=== PATIENT | male | born 1965 | race Caucasian/White ===

== ENCOUNTER 2017-02-17 16:11 | Emergency (ER) | payer MEDICAID ==
[~2017-02-17] VITALS: Ht 172.7 cm; Wt 96.2 kg
[~2017-02-17 16:11] MED LIST: LISINOPRIL10 MG PO; MIXED AMPHETAMI30 M1 PO; OMEPRAZOLE40 MG PO; TRAMADOL 50MG T50 MG PO; ZOLOFT100 MG PO
[2017-02-17 16:32] LABS: HEMOGLOBIN 14.1 g/dL (14.1-18.0); LYMPH # 1.8 K/mm3 (0.7-4.5)
[2017-02-17 16:33] LABS: STOOL OCCULT BLOOD POSITIVE (NEG)
--- NOTE | 2017-02-17 16:49 | Emergency Room Report ---
History of Present Illness Time Seen by MD Morales Presenting Problem in Triage Pt arrived:Walked Presenting Problem:PT C/O ABD PAIN WELL N/V X5 DAYS. PT ALSO ADVISES OF DISCOLORED STOOL AND SWEATS. PT STATES PAIN IS MOSTLY LOCATED IN LLQ. 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 N Clinical Suspician of Infection? N Mental Status: 1 - Regular (Normal Baseline) Sepsis Risk:Low Sepsis Risk Have you (or family members/close friends) recently traveled outside the [place]? N If Yes, where/when: Have you had exposure to infectious disease within the past month? N TB? Other? Specify: 41 years old white male with history of gallbladder disease and hypertension. He developed LEFT lower quadrant abdominal pain. He has vomiting. Source patient, RN notes reviewed, family Exam Limitations no limitations ALLERGIES Coded Allergies: quetiapine (From Shiny[employer]) (Mild, 02/17/17) Penicillins (08/16/16) Home Medications Reported Medications Lisinopril 10 MG PO DAILY 30 Days Tramadol Hcl (Tramadol 50MG) 50 MG PO Q3HP PRN ATHRITIS 30 Days DEXTROAMPHETAMINE/AMPHETAMINE (Dextroamp-Amphet ER 30 MG Cap) 30 MG PO DAILY 30 Days Omeprazole (Omeprazole 40MG) 40 MG PO DAILY SERTRALINE HYDROCHLORIDE (Zoloft 100MG) 150 MG PO DAILY History Medical History General CAD? No Angina: No PA: No Hypertension? No Hyperlipidemia? No CHF? No DVT? No PE? No COPD? No Asthma? No Anemia? No GERD? No Gastric ulcers? No GI Bleed? No Hernia? No Thyroid Problems? No Hypothyroidism? No CVA? No Seizures? No Diabetes? No Renal Insuffiency? No End Stage Renal Disease? No UTI? No Stones? No BPH? No GB Disease: No Nephritic Syndrome? No Asplenia? No Hepatitis? No Sickle Cell Disease? No Arthritis? No Migraines? No Cataracts? No Glaucoma? No MRSA? No HIV? No TB? No Anxiety? No Depression? No Cancer? No More? No Immunization Hx DT/Tetanus 08/16/16 Surgical Hx Previous Surgery?N Social History Smoking Hx Smoker: Current Every Day Smoker Tobacco: Yes Type Cigarettes Packs/day < 1 Pack Alcohol Alcohol: No Review of Systems All Other Systems Reviewed and Negative Constitutional no symptoms reported Eyes no symptoms reported ENT no symptoms reported. Respiratory no symptoms reported Cardiovascular no symptoms reported Gastrointestinal see HPI, abdominal pain, nausea, vomiting Genitourinary no symptoms reported. Musculoskeletal no symptoms reported Skin no symptoms reported Psychiatric/Neurological no symptoms reported Physical Exam Vital Signs Vital Signs Date Time Temp Pulse Resp B/P Pulse O2 O2 Flow FiO2 Ox Delivery Rate 02/17 1836 60 16 156/88 97 02/17 1814 22 02/17 1742 60 18 159/92 98 02/17 1657 60 16 151/88 98 02/17 1656 18 02/17 1617 97.9 56 18 160/83 100 - WBC >12,000 or <4,000 or 10% bands? 2 or more SIRS Criteria Met? B/P:160/83 MAP:108 Creatinine >2.0? UA output<0.5ml/kg/hr for 2 hrs? Platelet count >100,000? Lactate >2.0mmol/1? INR >1.2 or PTT > than 60 sec? Evidence of Organ Dysfunction? Provider documented clinical suspician of infection? N Sepsis Criteria Count: 0 Sepsis Risk: Low Sepsis Risk General Appearance normal appearance, WD/WN Eye Exam - bilateral eye normal exam, bilateral eye PERRL, bilateral eye EOMI Ear, Nose, Throat hearing grossly normal, normal ENT inspection Neck normal inspection, non-tender, supple, full range of motion Respiratory Status Yes: trachea midline, chest symmetrical, non tender chest. No: respiratory distress. Lung Sounds bilateral: normal breath sounds, lungs clear. Cardiovascular normal exam, regular rate/rhythm, no peripheral edema, no gallop, no JVD, no murmur, no rub, normal peripheral pulses Peripheral Pulses Pulses normal Yes Gastrointestinal soft abdomen without rigidity positive LEFT lower quadrant without tenderness across or rebound tenderness. Hypoactive bowel sounds Back normal inspection, no CVA tenderness, no vertebral tenderness Extremities non-tender, normal range of motion, normal inspection Rectal normal exam, normal rectal tone, heme negative stool Nurse present during exam? Yes Neurologic alert, bit setter II-XII nml as tested, normal exam, oriented x 3 Reflexes Reflexes normal Yes Skin intact, normal color, warm/dry Medical Decision Making LABS/Meds/Orders Pt receiving controlled substance in ED? No Results/Orders Laboratory Tests 02/17/17 1630: Stool Occult Blood POSITIVE 02/17/17 1620: Sodium 135 L, Potassium 4.9, Chloride 101, Carbon Dioxide 29, BUN 19 H, Creatinine 1.0, Estimated Creat Clear 122, Estimated GFR (MDRD) 79, Glucose 111 H, Calcium 8.8, Total Bilirubin 0.3, AST 16, ALT 25, Alkaline Phosphatase 63, Total Protein 7.2, Albumin 3.8, Globulin 3.4 H, Albumin/Globulin Ratio 1.1, Amylase 87, Lipase 173, WBC 9.0, RBC 4.61, Hgb 14.1, Hct 41.9 L, MCV 90.9, RDW 13.2, Plt Count 207, MPV 9.4, Gran % 73.0, Gran # 6.5, Lymphocytes % 20.0, Monocytes % 5.2, Eosinophils % 1.5, Basophils % 0.3, Lymphocytes # 1.8, Monocytes # 0.5, Eosinophils # 0.1, Basophils # 0.0, PUBS MCHC 33.6, MCH 30.5 Current Medication Orders Sig/Femi Start time Last Medication Dose Route Stop Time Status Admin Morphine Sulfate 4 MG ONCE ONE 02/17 1815 DC 02/17 IV 02/18 1816 181 Morphine Sulfate 0 .STK-MED ONE 02/18 1808 DC .ROUTE Levofloxacin 0 .STK-MED ONE 02/17 1802 DC .ROUTE Metronidazole 100 ML .STK-MED ONE 02/17 1802 DC IV Promethazine HCl 0 .STK-MED ONE 02/17 1802 DC .ROUTE Levofloxacin 500 MG ONCE ONE 02/17 1800 DC 02/17 PO 02/17 180 1804 Metronidazole 100 ML ONCE ONE 02/17 1800 AC 02/17 IV 02/17 1859 1804 Promethazine HCl 12.5 MG ONCE ONE 02/17 1800 DC 02/17 IV 02/17 180 180 Sodium Chloride 25 ML ONCE ONE 02/17 1800 DC IV 02/17 181 Famotidine 20 MG ONCE ONE 02/17 1700 DC 02/17 IV 02/17 1701 165 Ketorolac 30 MG ONCE ONE 02/17 170 DC 02/17 Tromethamine IV 02/17 1701 1656 Ondansetron HCl 4 MG ONCE ONE 02/17 1700 DC 02/17 IV 02/17 1701 1657 Sodium Chloride 8 ML ONCE ONE 02/17 1700 DC 02/17 IV 02/17 1701 1714 Famotidine 0 .STK-MED ONE 02/17 1653 DC IV Ondansetron HCl 0 .STK-MED ONE 02/17 1653 DC .ROUTE Ketorolac 0 .STK-MED ONE 02/17 1652 DC Tromethamine .ROUTE Sodium Chloride 10 ML PRN PRN 02/17 1630 AC IV 02/18 1621 Sodium Chloride 1,000 ML .Q1H1M 02/17 1630 DC 02/17 IV 02/17 1730 1634 Sodium Chloride 10 ML PRN PRN 02/17 1630 AC IV 02/18 1621 Sodium Chloride 1,000 ML .STK-MED ONE 02/17 1630 DC IV Orders Procedure Date/time Status DIET-NOTHING BY MOUTH 02/17 D Active OP COURTSEY MEAL 02/[address] ABD/PELVIS REQ 02/17 1650 Complete STOOL OCCULT BLOOD 02/17 1629 Complete IV SALINE LOCK 02/17 1621 Active LIPASE 02/17 1621 Complete CBC WITH AUTO DIFF 02/17 162 Complete CHEM 12 PROFILE 02/17 1621 Complete AMYLASE 02/17 1621 Complete Departure Departure Time of Disposition 1851 Disposition DC Home or Self Care(routine) Clinical Impression Primary Impression: Enteritis Secondary Impressions: Dehydration, Hypertension, Vomiting and diarrhea Condition STABLE Additional Instructions the patient felt better and tolerated po intake, took his levauin and no vomiting. we discussed his labs, and ct scan findings. after discussion he opted to go home, bowel rest today, gotrade tomorrow and brat diet friday. The patient and on the bed side verbalized understanding. follow up with his pcp Dr Interiano in AM Off work x 2 days zofran, imodium, bentyl, cipro and flagyl. return if vomiting return or worse. dr. Randle Discharge Counseling Counseled pt/family regarding diagnosis, test results, medications/RX, home care, follow up needs Prescriptions Current Visit Scripts Ondansetron (Zofran 4MG Odt) 4 MG PO Q6HP PRN NAUSEA AND VOMITING #12 ODT Loperamide HCl (Imodium A-D) 2 MG PO Q6HP PRN diarrhea #12 CAPSULE Metronidazole (Flagyl) 500 MG PO Q8 #21 TAB Ciprofloxacin HCl (Cipro 500MG TAB) 500 MG PO BID #14 TAB DICYCLOMINE HCL (Bentyl) 10 MG PO Q8HP PRN cramps #21 CAP ED Critical Care Critical Care No If Critical Care minutes are documented, the time involved in the performance of seperately reportable procedures was not counted toward critical care time documented. I directly delivered medical care to this critically ill and/or injured patient. Timely evaluation and treatment was necessary to address the significant organ system(s) dysfunction present in this patient. at 2916
--- NOTE | 2017-02-17 17:32 | RADIOLOGY REPORT PS360 ---
CT ABD PELVIS W/O CONTRAST CLINICAL INDICATION: Lower abdominal pain PAIN ORDERING PHYSICIAN: Jael Randle MD PATIENT AGE: 51 years COMPARISON: None TECHNIQUE: Axial images obtained with sagittal and coronal reformats. PROCEDURE: Oral Contrast: None IV Contrast: None . FINDINGS: Lower thorax: No acute finding Abdomen pelvis: The liver, gallbladder, spleen, adrenal glands, and pancreas have an unremarkable unenhanced CT appearance. No renal calculi or hydronephrosis is evident. No intestinal obstruction or free air. Unremarkable appendix. No evidence of diverticulitis. There are a few fluid-filled loops of small bowel noted in the lower abdomen without air-fluid levels. Finding is nonspecific but could be seen with enteritis. There is a small umbilical hernia containing fat. There are degenerative changes in the lumbar spine facet arthritic change and degenerative disc disease. No evidence of aortic aneurysm. There is a small hiatal hernia. Unremarkable appearing urinary bladder. IMPRESSION: 1. There are some fluid-filled loops of small bowel which are nonspecific but can be seen with enteritis. 2. Otherwise negative CT abdomen pelvis.
[2017-02-17] MEDS ORDERED: ZOFRAN ODT4 MG PO (18:40)
[2017-02-17] MEDS ORDERED: FLAGYL500 M1 PO (18:40)
[2017-02-17] MEDS ORDERED: CIPRO 500MG TA500 MG PO (18:40)
[2017-02-17] MEDS ORDERED: IMODIUM A-D2 M3 PO (18:40)
[2017-02-17] MEDS ORDERED: BENTYL10 M1 PO (18:56)
[2017-02-17 19:04] VITALS: BP 151/86
--- OUTSIDE RECORDS SUMMARY | 2017-02-17 22:35 | External Medical Summary Rpt ---
Author Author , TOMASA RANDOLPH Address Unknown Phone [email or web address] Care Team Providers Care Ict Development Manager Name Role Phone [facility] Unavailable Unavailable HOSPITAL, [facility]A MARIANO Unavailable Unavailable [facility], Unavailable Unavailable [facility] CLAUDIA, CLAUDIA Unavailable Unavailable ERWIN [facility], ERWIN Unavailable Unavailable [facility] Unavailable Unavailable INC, [facility] Unavailable Unavailable ASSOC[facility]AT, [facility] Unavailable Unavailable HOLDINGS, [facility] Unavailable Unavailable [facility]INGS, [facility], Unavailable Unavailable PLLC, [facility] Purpose Continuity of Care Document - 05-22-2016 through 2016 Problems Code Diagnosis DOS Provider Status R3911 HESITANCY 08-16-2016 [facility] [id number] LAC W/O FB 08-16-2016 [facility] FINGER W/O PLLC DAMAGE NAIL INIT Z23 ENCOUNTER 08-16-2016 [facility] IMMUN[facility] N [id number] OTHER LONG 08-16-2016 [facility] TERM [facility] CURRENT HOLDINGS DRUG THERAPY M7712 LATERAL 07-18-2016 [facility] LEFT ASSOCIAT [place] [id number] PAIN IN 05-30-2016 [place] LEFT [facility] [id number] LEFT 05-30-2016 [facility] TESTICULAR RADIOLOGY PAIN W10824 TESTICULAR 05-30-2016 [facility] R300 DYSURIA 05-30-2016 [facility] RADIOLOGY Medications Na ND Rx Da Fi Fi Am Da Di Ph RX Ph St me C No te ll ll ou ys ag ar # ys at rm s nt no ma ic us Or Da si cy ia de te s n re d NA 00 06 07 60 30 00 WA Ac BU 11 -2 -2 .0 00 L- ti ME 51 9- 8- 00 07 MA ve TO 65 20 20 49 RT NE 80 17 17 62 1 20 PH 75 AR 0 MA MG CY TA #5 BL 91 ET TA 68 06 30 30 00 WA Ac MS 38 -2 -2 .0 00 L- ti UL 20 9- 8- 00 07 MA ve OS 13 20 20 49 RT IN 20 17 17 62 1 21 PH HC AR L MA 0. CY 4 MG #5 91 CA PS UL E AM 16 06 07 30 30 00 WA Ac IT 72 -2 -2 .0 00 L- ti RI 90 9- 8- 00 07 MA ve PT 17 20 20 49 RT YL 31 17 17 62 IN 7 22 PH E AR HC MA L CY 50 #5 MG 91 TA B AT 68 06 30 30 00 WA Ac OR 64 -2 -2 .0 00 L- ti VA 50 9- 8- [address] 46 20 20 49 RT AT 05 17 17 62 IN 4 23 PH AR 40 MA CY MG #5 TA 91 BL ET SE 68 06 30 30 00 WA Ac RT 64 -2 -2 .0 00 L- ti RA 50 9- 8- 00 07 MA ve LI 52 20 20 49 RT NE 35 17 17 62 4 24 PH HC AR L MA 10 CY 0 MG #5 91 TA BL ET OM 60 06 30 30 00 WA Ac EP 50 -2 -2 .0 00 L- ti RA 50 9- 8- 00 07 MA ve ZO 14 20 20 49 RT LE 60 17 [address] AR MA 40 CY MG #5 91 CA PS UL E LI 68 06 30 30 00 WA Ac SI 64 -2 -2 .0 00 L- ti NO 50 9- 8- 00 07 MA ve MD 55 20 20 49 RT IL 55 17 17 62 4 26 PH 40 AR MA MG CY TA #5 BL 91 ET DE 00 12 18 30 30 00 WA Ac XT 22 -2 -2 .0 00 L- ti RO 83 3- 1- 00 02 MA ve AM 06 20 20 24 RT P- 11 17 17 08 AM 1 76 PH PH AR ET MA CY ER #5 30 91 MG CA P TR 00 06 07 12 30 00 WA Ac AM 37 -2 -2 0. 00 L- ti AD 84 3- 1- 00 04 MA ve OL 15 20 20 0 53 RT 10 17 17 07 HC 5 54 PH L AR 50 MA CY MG #5 TA 91 BL ET ON 57 06 07 15 8 00 WA Ac DA 23 -1 -1 .0 00 L- ti NS 70 9- 4- 00 07 MA ve ET 07 20 20 44 RT RO 53 17 17 87 N 0 20 PH HC AR L MA 4 CY MG #5 TA 91 BL ET TR 00 05 06 12 30 00 WA Ac AM 37 -2 -2 0. 00 L- ti AD 84 6- 3- 00 04 MA ve OL 15 20 20 0 53 RT 10 17 17 04 HC 5 77 PH L AR 50 MA CY MG #5 TA 91 BL ET DE 00 05 30 30 00 NE Ac XT 22 -2 -2 .0 00 L- ti RO 83 6- 3- 00 02 MA ve AM 06 20 20 24 RT P- 11 17 17 05 AM 1 04 PH PH AR ET MA CY ER #5 30 91 MG CA P ON 57 05 06 15 8 00 NE Ac DA 23 -2 -1 .0 00 L- ti NS 70 4- 6- 00 07 MA ve ET 07 20 20 44 RT RO 53 17 17 87 N 0 20 PH HC AR L MA 4 CY MG #5 TA 91 BL ET TA 68 05 01 10 30 00 NE Ac MS 38 -1 -1 .0 00 L- ti UL 20 8- 6- 00 07 MA ve OS 13 20 20 44 RT IN 20 17 17 87 1 19 PH HC AR L MA 0. CY 4 MG #5 91 CA PS UL E OM 60 05 30 30 00 NE Ac EP 50 -1 -1 .0 00 L- ti RA 50 8- 6- 00 07 MA ve ZO 14 20 20 44 RT LE 60 17 [address] AR MA 40 CY MG #5 91 CA PS UL E SE 68 05 45 30 00 NE Ac RT 64 -1 -1 .0 00 L- ti RA 50 8- 6- 00 07 MA ve LI 52 20 20 44 RT NE 35 17 17 87 4 23 PH HC AR L MA 10 CY 0 MG #5 91 TA BL ET AT 68 05 30 30 00 NE Ac OR 64 -1 -1 .0 00 L- ti VA 50 8- 6- [address] 46 20 20 44 RT AT 05 17 17 87 IN 4 18 PH AR 40 MA CY MG #5 TA 91 BL ET LI 54 05 30 30 00 NE Ac SI 45 -1 -1 .0 00 L- ti NO 80 9- 6- 00 07 MA ve MD 99 20 20 48 RT IL 41 17 17 88 0 39 PH 40 AR MA MG CY TA #5 BL 91 ET TR 00 04 05 12 30 00 NE Ac AM 37 -2 -2 0. 00 L- ti AD 84 6 04 MA ve OL 15 20 20 0 53 RT 10 17 17 01 HC 5 80 PH L AR 50 MA CY MG #5 TA 91 BL ET DE 00 04 05 30 30 00 WA Ac XT 22 -2 -2 .0 00 L- ti RO 83 8 6- 00 02 MA ve AM 06 20 20 24 RT P- 11 17 17 01 AM 1 01 PH PH AR ET MA CY ER #5 30 91 MG CA P LI 54 03 04 30 00 NE Ac SI 45 -3 -2 .0 00 L- ti NO 80 07 MA ve MD 99 20 20 44 RT IL 71 17 17 87 0 21 PH 10 AR MA MG CY TA #5 BL 91 ET SE 68 03 04 45 30 00 NE Ac RT 64 -3 -2 .0 00 L- ti RA 50 07 MA ve LI 52 20 20 44 RT NE 35 17 17 87 4 23 PH HC AR L MA 10 CY 0 MG #5 91 TA BL ET OM 60 03 04 00 NE Ac EP 50 -3 -2 .0 00 L- ti RA 50 07 MA ve ZO 14 20 20 44 RT LE 60 17 17 [address] AR MA 40 CY MG #5 91 CA PS UL E TA 68 03 04 00 NE Ac MS 38 -3 -2 .0 00 L- ti UL 20 07 MA ve OS 13 20 20 44 RT IN 20 17 17 87 1 19 PH HC AR L MA 0. CY 4 MG #5 91 CA PS UL E AT 68 03 04 00 NE Ac OR 64 -3 -2 .0 00 L- ti VA [address] 46 20 20 44 RT AT 05 17 17 87 IN 4 18 PH AR 40 MA CY MG #5 TA 91 BL ET TR 00 03 04 12 30 00 NE Ac AM 37 -3 -2 0. 00 L- ti AD 84 04 MA ve OL 15 20 20 0 52 RT 10 17 17 98 HC 5 73 PH L AR 50 MA CY MG #5 TA 91 BL ET DE 00 03 04 30 00 NE Ac XT 22 -3 -2 .0 00 L- ti RO 83 02 MA ve AM 06 20 20 23 RT P- 11 17 17 97 AM 1 60 PH PH AR ET MA CY ER #5 30 91 MG CA P TR 00 03 03 12 30 00 WA Ac AM 37 -0 -3 0. 00 L- ti AD 84 2- 1- 00 04 MA ve OL 15 20 20 0 52 RT 10 17 17 95 HC 5 49 PH L AR 50 MA CY MG #5 TA 91 BL ET DE 00 03 03 30 30 00 WA Ac XT 22 -0 -3 .0 00 L- ti RO 83 2- 1- 00 02 MA ve AM 06 20 20 23 RT P- 11 17 17 93 AM 1 43 PH PH AR ET MA CY ER #5 30 91 MG CA P ON 57 02 03 15 8 00 WA Ac DA 23 -1 -1 .0 00 L- ti NS 70 2- 0- 00 07 MA ve ET 07 20 20 44 RT RO 53 17 17 87 N 0 20 PH HC AR L MA 4 CY MG #5 TA 91 BL ET TR 00 02 03 12 30 00 WA Ac AM 37 -0 -0 0. 00 L- ti AD 84 3- 3- 00 04 MA ve OL 15 20 20 0 52 RT 10 17 17 92 HC 5 54 PH L AR 50 MA CY MG #5 TA 91 BL ET DE 00 02 03 30 30 00 WA Ac XT 22 -0 -0 .0 00 L- ti RO 83 3- 3- 00 02 MA ve AM 06 20 20 23 RT P- 11 17 17 89 AM 1 72 PH PH AR ET MA CY ER #5 30 91 MG CA P TA 68 01 02 30 30 00 WA Ac MS 38 -0 -0 .0 00 L- ti UL 20 7- 3- 00 07 MA ve OS 13 20 20 44 RT IN 20 17 17 87 1 19 PH HC AR L MA 0. CY 4 MG #5 91 CA PS UL E OM 57 01 02 30 30 00 WA Ac EP 23 -0 -0 .0 00 L- ti RA 70 7- 3- 00 07 MA ve ZO 16 20 20 44 RT LE 23 17 17 [address] AR MA 40 CY MG #5 91 CA PS UL E ON 57 01 02 15 8 00 WA Ac DA 23 -0 -0 .0 00 L- ti NS 70 7- 3- 00 07 MA ve ET 07 20 20 44 RT RO 53 17 17 87 N 0 20 PH HC AR L MA 4 CY MG #5 TA 91 BL ET LI 54 01 02 30 30 00 WA Ac SI 45 -0 -0 .0 00 L- ti NO 80 7- 3- 00 07 MA ve MD 99 20 20 44 RT IL 71 17 17 87 0 21 PH 10 AR MA MG CY TA #5 BL 91 ET AT 68 01 02 30 30 00 WA Ac OR 64 -0 -0 .0 00 L- ti VA 50 7- 3- [address] 46 20 20 44 RT AT 05 17 17 87 IN 4 18 PH AR 40 MA CY MG #5 TA 91 BL ET SE 68 01 02 45 30 00 WA Ac RT 64 -0 -0 .0 00 L- ti RA 50 7- 3- 00 07 MA ve LI 50 20 20 44 RT NE 00 17 17 87 1 23 PH HC AR L MA 10 CY 0 MG #5 91 TA BL ET TR 00 01 02 12 30 00 WA Ac AM 37 -0 -0 0. 00 L- ti AD 84 5- 3- 00 04 MA ve OL 15 20 20 0 52 RT 10 17 17 89 HC 5 50 PH L AR 50 MA CY MG #5 TA 91 BL ET DE 00 02 30 30 00 WA Ac XT 22 -0 -0 .0 00 L- ti RO 83 5- 3- 00 02 MA ve AM 06 20 20 23 RT P- 11 17 17 85 AM 1 76 PH PH AR ET MA CY ER #5 30 91 MG CA P Procedures Procedure DOS [place] [address] [facility] [employer] [employer] [place] [address] [facility] PROSTATE 7 [facility] [employer] [facility] HOLDINGS ANTIGEN FREE DRUG TEST G0480 [facility] DEFINITV [address] ID HOLDINGS HOLDINGS METH P DAY 1-7 DRUG CL SIMPLE 47687 [facility] CLA[facility] REPAIR 7 PHYSICIAN SCALP/NEC S, PLLC K/AX/LEONA T/TRUNK 2.5CM/< UNCLASSIF J3490 [facility] INC ARTHROCEN 81461 [facility] MARIANO ROX[facility]NE 7 ORTHOPEDI ASPIR&/IN C J INTERM ASSOCIAT JT/BURS W/O US US PELVIC 88841 [facility] [place] [facility] 6 RADIOLOGY RHO NONOBSTET KATIUSKA IMAGE DCMTN LIMITED/F /U 00724 [facility] [place] [facility] SCROTUM & 6 RADIOLOGY RHO CONTENTS RADEX [address] MINIMUM 3 VIEWS Encounters Encounter Start End Date Code Location Performer Type Date EMERGENCY 15685 [facility] 7 7 PHYSICIAN [place] [facility] T VISIT MODERATE SEVERITY [facility] - 7 7 [facility] 7 7 ORTHOPEDI T NEW 45 C MINUTES [facility] [address]
--- OUTSIDE RECORDS SUMMARY | 2017-02-17 22:35 | External Medical Summary Rpt ---
Author Author , TOMASA RANDOLPH Address Unknown Phone [email or web address] Care Team Providers Care Developer Prover Upholstering Name Role Phone [facility] Unavailable Unavailable HOSPITAL, [facility] Unavailable Unavailable [facility], Unavailable Unavailable [facility] CLAUDIA, CLAUDIA Unavailable Unavailable ERWIN RHO, ERWIN Unavailable Unavailable [facility] Unavailable Unavailable INC, [facility] Unavailable [facility]available ASSOCIAT, [facility] Unavailable Unavailable HOLDINGS, [facility] Unavailable Unavailable HOLDINGS, [facility], Unavailable Unavailable PLLC, [facility] Purpose Continuity of Care Document - 05-22-2016 through 2016 Problems Code Diagnosis DOS Provider Status R3911 HESITANCY 08-16-2016 [facility] [employer] [facility] [id number] LAC W/O FB 08-16-2016 [facility], FINGER W/O PLLC DAMAGE NAIL INIT Z23 ENCOUNTER 08-16-2016 [facility] N [id number] OTHER LONG 08-16-2016 [facility] TERM EMANUEL CURRENT HOLDINGS DRUG THERAPY M7712 LATERAL 07-18-2016 [facility] LEFT ASSOCIAT [place] E46350 PAIN IN 05-30-2016 [facility] LEFT [place] [id number] LEFT 05-30-2016 [facility] TESTICULAR RADIOLOGY PAIN W08054 TESTICULAR 05-30-2016 [facility] R300 DYSURIA 05-30-2016 [facility] RADIOLOGY Medications Na ND Rx Da Fi [...] 50 9- 8- 00 07 MA ve NC 55 20 20 49 RT IL 55 [...] ET DE 00 05 30 30 00 OK Ac XT 22 -2 -2 .0 00 L- ti RO 83 6- 3- 00 02 MA ve AM 06 20 20 24 RT P- 11 17 17 05 AM 1 04 PH PH AR ET MA CY ER #5 30 91 MG CA P ON 57 05 06 15 8 00 OK Ac DA 23 -2 -1 .0 00 L- ti NS 70 4- 6- 00 07 MA ve ET 07 20 20 44 RT RO 53 17 17 87 N 0 20 PH HC AR L MA 4 CY MG #5 TA 91 BL ET TA 68 05 01 10 30 00 OK Ac MS 38 -1 -1 .0 00 L- ti UL 20 8- 6- 00 07 MA ve OS 13 20 20 44 RT IN 20 17 17 87 1 19 PH HC AR L MA 0. CY 4 MG #5 91 CA PS UL E OM 60 05 30 30 00 OK Ac EP 50 -1 -1 .0 00 L- ti RA 50 8- 6- 00 07 MA ve ZO 14 20 20 44 RT LE 60 17 17 [address] AR MA 40 CY MG #5 91 CA PS UL E SE 68 05 45 30 00 OK Ac RT 64 -1 -1 .0 00 L- ti RA 50 8- 6- 00 07 MA ve LI 52 20 20 44 RT NE 35 17 17 87 4 23 PH HC AR L MA 10 CY 0 MG #5 91 TA BL ET AT 68 05 30 30 00 OK Ac OR 64 -1 -1 .0 00 L- ti VA 50 8- 6- [address] 46 20 20 44 RT AT 05 17 17 87 IN 4 18 PH AR 40 MA CY MG #5 TA 91 BL ET LI 54 05 30 30 00 OK Ac SI 45 -1 -1 .0 00 L- ti NO 80 9- 6- 00 07 MA ve NC 99 20 20 48 RT IL 41 17 17 88 0 39 PH 40 AR MA MG CY TA #5 BL 91 ET TR 00 04 05 12 30 00 OK Ac AM 37 -2 -2 0. 00 [...] P LI 54 03 04 30 00 OK Ac SI 45 -3 -2 .0 00 L- ti NO 80 07 MA ve NC 99 20 20 44 RT IL 71 17 17 87 0 21 PH 10 AR MA MG CY TA #5 BL 91 ET SE 68 03 04 45 30 00 OK Ac RT 64 -3 -2 .0 00 L- ti RA 50 07 MA ve LI 52 20 20 44 RT NE 35 17 17 87 4 23 PH HC AR L MA 10 CY 0 MG #5 91 TA BL ET OM 60 03 04 00 OK Ac EP 50 -3 -2 .0 00 L- ti RA 50 07 MA ve ZO 14 20 20 44 RT LE 60 17 17 [address] AR MA 40 CY MG #5 91 CA PS UL E TA 68 03 04 00 OK Ac MS 38 -3 -2 .0 00 L- ti UL 20 07 MA ve OS 13 20 20 44 RT IN 20 17 17 87 1 19 PH HC AR L MA 0. CY 4 MG #5 91 CA PS UL E AT 68 03 04 00 OK Ac OR 64 -3 -2 .0 00 L- ti VA [address] 46 20 20 44 RT AT 05 17 17 87 IN 4 18 PH AR 40 MA CY MG #5 TA 91 BL ET TR 00 03 04 12 30 00 OK Ac AM 37 -3 -2 0. 00 L- ti AD 84 04 MA ve OL 15 20 20 0 52 RT 10 17 17 98 HC 5 73 PH L AR 50 MA CY MG #5 TA 91 BL ET DE 00 03 04 30 00 OK Ac XT 22 -3 -2 .0 00 [...] 80 7- 3- 00 07 MA ve NC 99 20 20 44 RT IL 71 [...] DOS Code [place] [address] [facility] PROSTATE 7 [facility] [employer] [place] [address] [facility] PROSTATE 7 [facility] [employer] HOLDINGS ANTIGEN FREE DRUG TEST G0480 [facility] DEFINITV [address] ID HOLDINGS HOLDINGS METH P DAY 1-7 DRUG CL SIMPLE 62786 [facility] CLAUDIA REPAIR 7 PHYSICIAN SCALP/NEC S, PLLC K/AX/LEONA T/TRUNK 2.5CM/< UNCLASSIF J3490 [facility]UGS 7 [facility] INC INC ARTHROCEN 73817 RUSSELL MARIANO ROXANNE 7 ORTHOPEDI ASPIR&/IN C J INTERM ASSOCIAT JT/BURS W/O US US PELVIC 47954 [facility] [place] [facility] 6 RADIOLOGY RHO NONOBSTET KATIUSKA IMAGE DCMTN LIMITED/F /U 22713 [facility] [place] [facility] SCROTUM & 6 RADIOLOGY RHO CONTENTS RADEX [address] MINIMUM 3 VIEWS Encounters Encounter Start End Date Code Location Performer Type Date EMERGENCY 32307 C[facility]ICE TAYLOR 7 7 PHYSICIAN [place] T VISIT MODERATE SEVERITY [facility] [address] [facility] 7 7 ORTHOPEDI T NEW 45 C MINUTES [facility] [address]
--- OUTSIDE RECORDS SUMMARY | 2017-02-17 22:36 | External Medical Summary Rpt ---
Author Author , TOMASA RANDOLPH Address Unknown Phone [email or web address] Care Team Providers Care Commercial Credit Head Name Role Phone [facility] Unavailable Unavailable HOSPITAL, [facility] GARCÍA MARIANO Unavailable Unavailable [facility] RADI[facility], Unavailable Unavailable [facility] ERWIN RHO, ERWIN Unavailable Unavailable [facility] [place] ANDREA, [place] Unavailable Unavailable [facility] Unavailable Unavailable INC, [facility] Unavailable Unavailable ASSOCIAT, [facility] Unavailable Unavailable HOLDINGS, [facility] Unavailable Unavailable [facility]INGS, [facility], Unavailable Unavailable PLLC, [facility] Purpose Continuity of Care Document - 05-22-2016 through 2016 Problems Code Diagnosis DOS Provider Status R3911 HESITANCY 08-16-2016 [facility] [id number] LAC W/O FB 08-16-2016 [facility]INGER W/[facility] PLLC DAMAGE NAIL INIT Z23 ENCOUNTER 08-16-2016 [facility] IMMUNIZ[facility]IO INC N [id number] OTHER LONG 08-16-2016 [facility] TERM [facility] CURRENT HOLDINGS DRUG THERAPY M7712 LATERAL 07-18-2016 [place] [facility] IS LEFT ASSOCIAT ELBOW [id number] PAIN IN 05-30-2016 [place] LEFT [facility] [id number] LEFT 05-30-2016 [facility] TESTICULAR RADIOLOGY PAIN [id number] TESTICULAR 05-30-2016 [facility] UNSPECIFIED HOSPITAL R300 DYSURIA 05-30-2016 [facility] RADIOLOGY Medications Na ND Rx Da Fi [...] #5 BL 91 ET TA 68 06 07 30 30 00 WA Ac MS 38 [...] MG 91 TA B AT 68 06 07 30 30 00 WA Ac OR 64 [...] 91 TA BL ET OM 60 06 07 30 30 00 WA Ac EP 50 [...] 50 9- 8- 00 07 MA ve DE 55 20 20 49 RT IL 55 [...] ET DE 00 05 30 30 00 WA Ac XT 22 -2 -2 .0 00 L- ti RO 83 6- 3- 00 02 MA ve AM 06 20 20 24 RT P- 11 17 17 05 AM 1 04 PH PH AR ET MA CY ER #5 30 91 MG CA P TA 68 05 30 30 00 WA Ac MS 38 -1 -1 .0 00 L- ti UL 20 8- 6- 00 07 MA ve OS 13 20 20 44 RT IN 20 17 17 87 1 19 PH HC AR L MA 0. CY 4 MG #5 91 CA PS UL E OM 60 05 30 30 00 DE Ac EP 50 -1 -1 .0 00 L- ti RA 50 8- 6- 00 07 MA ve ZO 14 20 20 44 RT LE 60 17 [address] AR MA 40 CY MG #5 91 CA PS UL E LI 54 05 30 30 00 DE Ac SI 45 -1 -1 .0 00 L- ti NO 80 8- 6- 00 07 MA ve DE 99 20 20 44 RT IL 71 17 17 87 0 21 PH 10 AR MA MG CY TA #5 BL 91 ET SE 68 05 06 45 30 00 DE Ac RT 64 -1 -1 .0 00 L- ti RA 50 8- 6- 00 07 MA ve LI 52 20 20 44 RT NE 35 17 17 87 4 23 PH HC AR L MA 10 CY 0 MG #5 91 TA BL ET AT 68 05 06 30 30 00 WA Ac OR 64 -1 -1 .0 00 L- ti VA 50 8- 6- [address] 46 20 20 44 RT AT 05 17 17 87 IN 4 18 PH AR 40 MA CY MG #5 TA 91 BL ET ON 57 05 06 15 8 00 WA Ac DA 23 -2 -1 .0 00 L- ti NS 70 4- 6- 00 07 MA ve ET 07 20 20 44 RT RO 53 17 17 87 N 0 20 PH HC AR L MA 4 CY MG #5 TA 91 BL ET DE 00 04 30 30 00 WA Ac XT 22 -2 -2 .0 00 L- ti RO 83 6 02 MA ve AM 06 20 20 24 RT P- 11 17 17 01 AM 1 01 PH PH AR ET MA CY ER #5 30 91 MG CA P TR 00 04 05 30 00 WA Ac AM 37 -2 -2 0. 00 L- ti AD 84 8 6- 04 MA ve OL 15 20 20 0 53 RT 10 17 17 01 HC 5 80 PH L AR 50 MA CY MG #5 TA 91 BL ET LI 54 03 04 30 30 00 WA Ac SI 45 -3 -2 .0 00 L- ti NO 80 07 MA ve DE 99 20 20 44 RT IL 71 17 17 87 0 21 PH 10 AR MA MG CY TA #5 BL 91 ET SE 68 03 04 45 30 00 DE Ac RT 64 -3 -2 .0 00 L- ti RA 50 8 07 MA ve LI 52 20 20 44 RT NE 35 17 17 87 4 23 PH HC AR L MA 10 CY 0 MG #5 91 TA BL ET OM 60 03 04 30 00 WA Ac EP 50 -3 -2 .0 00 L- ti RA 50 8 07 MA ve ZO 14 20 20 44 RT LE 60 17 [address] AR MA 40 CY MG #5 91 CA PS UL E TA 68 03 04 30 00 DE Ac MS 38 -3 -2 .0 00 L- ti UL 20 8 07 MA ve OS 13 20 20 44 RT IN 20 17 17 87 1 19 PH HC AR L MA 0. CY 4 MG #5 91 CA PS UL E AT 68 03 04 30 00 WA Ac OR 64 -3 -2 .0 00 L- ti VA [address] 46 20 20 44 RT AT 05 17 17 87 IN 4 18 PH AR 40 MA CY MG #5 TA 91 BL ET TR 00 03 04 30 00 WA Ac AM 37 -3 -2 0. 00 L- ti AD 84 8 04 MA ve OL 15 20 20 0 52 RT 10 17 17 98 HC 5 73 PH L AR 50 MA CY MG #5 TA 91 BL ET DE 00 03 04 30 00 WA Ac XT 22 -3 -2 .0 00 L- ti RO 83 8- 00 02 MA ve AM 06 20 [...] 30 91 MG CA P TR 00 01 02 12 30 00 WA Ac AM 37 -0 -0 0. 00 L- ti AD 84 5- 3- 00 04 MA ve OL 15 20 20 0 52 RT 10 17 17 89 HC 5 50 PH L AR 50 MA CY MG #5 TA 91 BL ET DE 00 01 02 30 30 00 WA Ac XT 22 -0 -0 .0 00 L- ti RO 83 5- 3- 00 02 MA ve AM 06 20 20 23 RT P- 11 17 17 85 AM 1 76 PH PH AR ET MA CY ER #5 30 91 MG CA P OM 57 01 02 30 30 00 [...] 80 7- 3- 00 07 MA ve DE 99 20 20 44 RT IL 71 [...] 0 MG #5 91 TA BL ET TA 68 01 02 30 30 00 WA Ac MS 38 -0 -0 .0 00 L- ti UL 20 7- 3- 00 07 MA ve OS 13 20 20 44 RT IN 20 17 17 87 1 19 PH HC AR L MA 0. CY 4 MG #5 91 CA PS UL E Procedures Procedure [place] [address] [facility] PROSTATE [facility] [place] [address] [facility] PROSTATE 7 [facility] HOLDINGS ANTIGEN FREE DRUG TEST G0480 [facility] DEFINITV [address] ID HOLDINGS HOLDINGS METH P DAY 1-7 DRUG CL SIMPLE 40876 [facility] REPAIR [facility] SCALP/NEC INC INC K/AX/LEONA T/TRUNK 2.5CM/< UNCLASSIF J3490 [facility] IED DRUGS 7 [facility] INC INC ARTHROCEN 68923 JUNIORAmairani MARIANO MIGUELIS 7 ORTHOPEDI ASPIR&/IN C J INTERM ASSOCIAT JT/BURS W/O US US PELVIC 58[address] [facility] [place] [facility] 6 RADIOLOGY RHO NONOBSTET KATIUSKA IMAGE DCMTN LIMITED/F /U 05973 [facility] [place] [facility] SCROTUM & 6 RADIOLOGY RHO CONTENTS RADEX 40564 [facility] [place] ELBOW 6 RADIOLOGY ANDREA COMPLETE MINIMUM 3 VIEWS Encounters Encounter Start End Date Code Location Performer Type [facility] 7 7 [facility]ER[facility] [address] [facility] 7 7 [facility] VISIT MODERATE SEVERITY OFFICE 37651 JUNIORAmairani GARCÍA [facility] 7 7 ORTHOPEDI T NEW 45 C MINUTES [facility] [address]
--- OUTSIDE RECORDS SUMMARY | 2017-02-17 22:36 | External Medical Summary Rpt ---
Author Author , TOMASA RANDOLPH Address Unknown Phone [email or web address] Care Team Providers Care Project Specialist Name Role Phone [facility] Unavailable Unavailable HOSPITAL, [facility] MARIANO Unavailable Unavailable [facility], Unavailable [facility]available [facility] ERWIN RHO, ERWIN Unavailable Unavailable [facility] [place] ANDREA, [place] Unavailable Unavailable ANDREA [facility] Unavailable Unavailable INC, [facility] Unavailable Unavailable ASSOCIAT, [facility] Unavailable Unavailable HOLDINGS, [facility] Unavailable Unavailable HOLDINGS, [facility], Unavailable Unavailable PLLC, [facility] Purpose Continuity of Care Document - 05-22-2016 through 2016 Problems Code Diagnosis DOS Provider Status R3911 HESITANCY 08-16-2016 [facility] [employer] [id number] LAC W/O FB 08-16-2016 [facility], FINGER W/O PLLC DAMAGE NAIL INIT Z23 ENCOUNTER 08-16-2016 [facility] I[facility]UN[facility] N [id number] OTHER LONG 08-16-2016 [facility] TERM [facility] CURRENT HOLDINGS DRUG THERAPY M7712 LATERAL 07-18-2016 [place] [facility] IS LEFT ASSOCIAT ELBOW F17541 PAIN IN 05-30-2016 [place] LEFT ELBOW [facility] R25610 LEFT 05-30-2016 [facility] TESTICULAR RADIOLOGY PAIN Q56548 TESTICULAR 05-30-2016 [facility] UNSPECIFIED HOSPITAL R300 DYSURIA 05-30-2016 [facility] RADIOLOGY Medications Na ND Rx [...] 50 9- 8- 00 07 MA ve AK 55 20 20 49 RT IL 55 [...] E OM 60 05 30 30 00 [place] Ac EP 50 -1 -1 .0 00 L- ti RA 50 8- 6- 00 07 MA ve ZO 14 20 20 44 RT LE 60 17 [address] AR MA 40 CY MG #5 91 CA PS UL E LI 54 05 30 30 00 VT Ac SI 45 -1 -1 .0 00 L- ti NO 80 8- 6- 00 07 MA ve AK 99 20 20 44 RT IL 71 17 17 87 0 21 PH 10 AR MA MG CY TA #5 BL 91 ET SE 68 05 06 45 30 00 VT Ac RT 64 -1 -1 .0 00 [...] L- ti NO 80 07 MA ve AK 99 20 20 44 RT IL 71 17 17 87 0 21 PH 10 AR MA MG CY TA #5 BL 91 ET SE 68 03 04 45 30 00 VT Ac RT 64 -3 -2 .0 00 [...] E TA 68 03 04 30 00 VT Ac MS 38 -3 -2 .0 00 [...] 80 7- 3- 00 07 MA ve AK 99 20 20 44 RT IL 71 [...] DOS [place] [address] [facility] PROSTATE 7 [facility] [employer] [facility] [place] [address] [facility] PROSTATE 7 [facility] HOLDINGS ANTIGEN FREE DRUG TEST G0480 [facility] DEFINITV [address] ID HOLDINGS HOLDINGS METH P DAY 1-7 DRUG CL SIMPLE 80502 [facility] REPAIR 7 [facility] SCALP/NEC INC INC K/AX/LEONA T/TRUNK 2.5CM/< UNCLASSIF J3490 [facility] IED DRUGS 7 [facility] INC INC ARTHROCEN 13820 JUNIORAmairani MARIANO MIGUELIS 7 ORTHOPEDI ASPIR&/IN C J INTERM ASSOCIAT JT/BURS W/O US US PELVIC 41833 [facility] [place] 6 RADIOLOGY RHO NONOBSTET KATIUSKA IMAGE DCMTN LIMITED/F /U 33790 [facility] [place] SCROTUM & 6 RADIOLOGY RHO CONTENTS RADEX 18384 [facility] [place] EL[place] 6 RADIOLOGY ANDREA COMPLETE MINIMUM 3 VIEWS Encounters Encounter Start End Date Code Location Performer Type Date [facility] - 7 7 [facility] [facility]EN [facility] EMER[facility]ENC[facility] [address]59 [facility] 7 [facility] [place] [facility] VISIT MODERATE SEVERITY OFFICE 05535 JUNIORAmairani GARCÍA [facility] 7 7 ORTHOPEDI T NEW 45 C MINUTES [facility] [address]
--- OUTSIDE RECORDS SUMMARY | 2017-02-17 22:37 | External Medical Summary Rpt ---
Author Author TOMASA Vail, [employer] Address Unknown Phone Unavailable
--- OUTSIDE RECORDS SUMMARY | 2017-02-17 22:37 | External Medical Summary Rpt ---
Demographics Preferred Language Indonesian Marital Status Unknown Christian Affiliation Unknown Race Unknown Ethnic Group Unknown Author Author TOMASA Address Unknown Phone Immunization No patient found.
--- OUTSIDE RECORDS SUMMARY | 2017-02-17 22:37 | External Medical Summary Rpt ---
Demographics Preferred Language Upper Sorbian Marital Status Unknown Uatsdin Affiliation Unknown Race Unknown Ethnic Group Unknown Author Author TOMASA Address Unknown Phone Immunization No patient found.
== END 2017-02-17 19:04 | disposition home or self-care (01) ==
LOC: ER 16:11
PROVIDERS: Emergency Medicine
DX: A08.4 Viral intestinal infection, unspecified (principal); E86.0 Dehydration; I10 Essential (primary) hypertension
CPT/HCPCS: G0328; J2405